=== PATIENT | female | born 1955 | race Caucasian/White ===

== ENCOUNTER 2017-08-27 10:48 | Emergency (ER) | payer OTHER ==
[~2017-08-27] VITALS: Ht 165.1 cm; Wt 76.0 kg
[~2017-08-27 10:48] MED LIST: ANTIVERT25 MG PO; ASPIR 8181 M1 PO; ASPIRIN325 MG PO; ATARAX,VISTARIL25 MG PO; BUPROPION HCL150 M2 PO; BUSPIRONE HCL10 MG PO; DULOXETINE HCL30 MG PO; FLEXERIL5 MG PO; KEFLEX500 MG PO; KENALOG,ARISTOC80 GM TP; LOPRESSOR25 MG PO; TRAMADOL HCL50 MG PO; WELLBUTRIN SR150 MG PO; ZANTAC300 MG PO; ZOFRAN ODT4 MG PO
[2017-08-27 11:33] LABS: HEMATOCRIT 44.3 % (36.0-46.0); MCH 25.9 PG (29.0-34.0); MCHC 31.2 G/DL (30.0-36.0); MCV 83.3 FL (83-99); MEAN PLAT.VOLUME 9.9 uM^3 (9.5-12.4); PLATELET COUNT 194 K/uL (156-360); RBC DIS.WIDTH-CV 13.6 % (11.8-14.6); RBC DIS.WIDTH-SD 41.2 % (39-53); RED BLOOD COUNT 5.32 M/uL (3.80-5.20); WHITE BLOOD COUNT 6.7 K/uL (4.1-10.2)
[2017-08-27 11:54] LABS: TROP-I INTERPRETATION NEGATIVE; TROPONIN-I < 0.01 ng/mL (0.0-0.30)
[2017-08-27 12:01] LABS: CHLORIDE 105 mEq/L (99-109); POTASSIUM 4.2 mEq/L (3.7-5.4); SODIUM 141 mEq/L (136-147)
[2017-08-27 12:03] LABS: GLUCOSE 102 mg/dL (70-99)
[2017-08-27 12:04] LABS: ANION GAP 9 MEQ/L (2-14)
[2017-08-27 12:07] LABS: GFR ESTIMATE (CALCULATED) > 59 mL/min/
[2017-08-27 12:08] LABS: UREA NITROGEN (BUN) 13 mg/dL (9-23)
[2017-08-27] MEDS ORDERED: TYLENOL WITH C1 EACH PO (13:18)
[2017-08-27 13:33] VITALS: BP 135/90
== END 2017-08-27 13:35 | disposition home or self-care (01) ==
LOC: EME 10:48
DX: S20.211A Contusion of right front wall of thorax, initial encounter (principal); M25.462 Effusion, left knee; M79.602 Pain in left arm; W01.0XXA Fall on same level from slipping, tripping and stumbling without subsequent striking against object, initial encounter; Y93.01 Activity, walking, marching and hiking; Y92.480 Sidewalk as the place of occurrence of the external cause; Z79.82 Long term (current) use of aspirin
CPT/HCPCS: 71020; 80048; 84484; 85027; 93005; 99281; 99284